=== PATIENT | male | born 1940 | race Caucasian/White ===

== ENCOUNTER 2016-07-24 08:39 | Day surgery (SDC) | payer MEDICAID, MEDICARE ==
[~2016-07-24] VITALS: Ht 175.3 cm; Wt 72.5 kg
--- NOTE | 2016-07-24 07:33 | PCM.HPANE ---
Patient Data Surgeon Admitting Provider: Attending Provider:Jose Damian MD Primary Care Physician:Luis Miguel Palm DO Other Provider: Reason for Visit Dysphagia Ht/WT & BMI Body Mass Index Allergies Coded Allergies: No Known Allergies (Unverified , 07/23/16) Past Anesthesia History Anesthesia History: Denies:: Abnormal Airway, Anesthesia Reactions, Difficult Intubation, Fam Anesthesia Reaction, Fam Malignant Hypertherm, Malignant Hyperthermia Diabetes History Hx Diabetes?: No MRSA MRSA: No Medications Blood Thinner: Aspirin Reported Medications Zolpidem 10 Mg Kkloec23 Mg PO HS PRN For Insomnia Ref 0 07/23/16 Trazodone 50 Mg [id number] Mg PO HS Ref 0 07/23/16 Baclofen 10 Mg Siuxif14 Mg PO BID Ref 0 01/23/16 Esomeprazole Magnesium (Nexium)20 Mg Capsule.dr20 Mg PO DAILY Ref 0 01/23/16 Atorvastatin (Lipitor)40 Mg Rfpvzz79 Mg PO DAILY Ref 0 01/23/16 Clonazepam 0.5 Mg Tablet0.5 Mg PO BID PRN For Anxiety Ref 0 01/23/16 Lisinopril 20 Mg Iuaojr37 Mg PO DAILY Ref 0 01/23/16 Carvedilol 12.5 Mg Eaknpw55.5 Mg PO BID Ref 0 01/23/16 Aspirin 325 Mg Aoufve552 Mg PO DAILY 01/23/16 History HEENT History: Positive for:: Dysphagia (MILD INCREASE SINCE LAST DILATION "USUALLY EVERY YEAR") Denies:: Abnormal Airway Difficult Intubation Cardiovascular History: Positive for:: Congestive Heart Failure Hypertension Pacemaker Hx of Respiratory Problem?: No Respiratory History: Denies:: Tuberculosis Neurological History: Positive for:: CVA (MINI-STROKE 2 YEARS AGO...NO RESIDUAL EFFECTS) Psycho Social History: Positive for:: Anxiety Hx Surgeries?: Yes (ESOPH CA, STENTS X6, PACEMAKER, CHOLY, T&A, CATARACTS) Other History: Positive for:: Cancer (ESOPHAGEAL) Hx Diabetes: No Hx Alcohol Use: NoHx Substance Use: No Smoking Status: Never Smoker Stop/Bang MUNIR Risk Assessment: Low Risk, <3 Yes Risk Assessment Category Category 1A: Patient has history of documented sleep apnea, and HAS NOT received any narcotic, sedative or anesthesia administration during this stay. Category 1B: Patient has history of documented sleep apnea, and HAS received any narcotic , sedative or anesthesia administration during this stay Category 2: Patient has SUSPECTED Obstructive Sleep Apnea, and HAS received any narcotic , sedative or anesthesia administration during this stay. Category 3: Patient has SUSPECTED Obstructive Sleep Apnea and HAS NOT received narcotic, sedative or anesthesia administration during this stay. Category 4: Outpatient in Procedural Areas with known sleep apnea or who screen positive for High Risk via the STOP/BANG questionnaire. Exam Exam General Appearance: Alert, Oriented X3, Cooperative, No Acute Distress HEENT/AIRWAY: MP 2 Lungs: Clear to Auscultation, Normal Air Movement Heart: Exam Unremarkable, Regular Rate/Rhythm, No Murmurs/Rubs/Gallops Plan Impression Patient chart reviewed, patient interviewed and anesthestic plan with risks, benefits, and alternatives discussed, and informed consent obtained. ASA Physical Status: ASA3 Severe Disease Anesthetic Plan: MAC Bene/Risks/Altern/Consents: Yes HP Complete Prior to Induction: Yes Vitaliy Riley MD Jul 24, 2016 07:33
[~2016-07-24 08:39] MED LIST: ASPI325T32 PO; BACL10TA PO; CARV12.52 PO; ESOM20CA28 PO; KLO5T PO; LIP40 PO; LISI-567 PO; Lactated Ringer's 1,000 ML IV ONE; TRAZ-115 PO; ZOLP10TA5 PO
[2016-07-24] MEDS ORDERED: fentaNYL-PF 50 mCg/mL 2 mL Inj ONE (08:40)
[2016-07-24] MEDS ORDERED: Propofol 10,000 mCg/mL 20 mL Inj ONE (08:40)
[2016-07-24 09:03] VITALS: BP 121/72; PULSE 81; RESP 16; O2SAT 99
[2016-07-24] MEDS ORDERED: Lactated Ringer's 1,000 ML IV SCH (09:56)
--- NOTE | 2016-07-24 09:56 | PCM.ANEP2 ---
Post Anesthesia Evaluation ASA/CMS Post Anesthesia VS in Patient's Normal Range?: Yes Resp Stable; Airway Patent?: Yes CV Function & Hydration Stable: Yes Mental Status Recovered?: Yes Pain control Satisfactory?: Yes N/V Control Satisfactory?: Yes Vitaliy Riley MD Jul 24, 2016 09:56
--- NOTE | 2016-07-24 09:56 | PCM.ANEP1 ---
Post Anesthesia Phase 1 PACU Phase 1 Assessment Vital Signs Vital Signs Date Time Temp Pulse Resp B/P Pulse Ox O2 Delivery O2 Flow Rate FiO2 07/24/16 09:03 36.6 81 16 121/72 99 Room Air Anesthetic Administered: MAC Level of Alertness: Awake, talking CASILLAS's with Equal Strength: Yes Pain: No Nausea or Vomiting: No Oxygen Delivery: Nasal Cannula Lungs: Clear to Auscultation, Normal Air Movement Vitaliy Riley MD Jul 24, 2016 09:56
[2016-07-24 09:59] VITALS: BP 115/63; PULSE 62; RESP 14; O2SAT 97
[2016-07-24] MEDS ORDERED: Ondansetron 2 mg/mL 2 mL Inj IVPUSH PRN (10:00)
[2016-07-24] MEDS ORDERED: MetoCLOpramide 5 mg/mL 2 mL Inj IVPUSH PRN (10:00)
[2016-07-24 10:21] VITALS: BP 98/61; PULSE 68; RESP 14; O2SAT 99
--- NOTE | 2016-07-24 10:37 | ENDO ---
[address] [address] ENDOSCOPY PROCEDURE PATIENT: QUENTIN ESPOSITO : 1940 MR#: [id number] ADMIT: 07/24/2016 JOB ID: [id number] DATE OF SERVICE: 07/24/2016 TYPE OF OPERATION: Esophagogastroduodenoscopy with esophageal dilatation. PREOPERATIVE DIAGNOSIS(ES): Dysphagia. POSTOPERATIVE DIAGNOSIS(ES): 1. Status post distal esophagectomy with anastomosis, status post ylv-msexupc-ogs-scope balloon dilatation from 18-20 mm with good mucosal tear. 2. Medium-sized hiatal hernia. ANESTHESIA: Monitored anesthesia care. COMPLICATIONS: None. BLOOD LOSS: Minimal. DESCRIPTION OF PROCEDURE: After risks and benefits explained to the patient, informed consent was obtained. After anesthesia administered, upper endoscope was then inserted into the mouth, intubating the esophagus, stomach, second portion of duodenum. Mucosa carefully examined. After procedure was done, the scope withdrawn and the procedure terminated. FINDINGS: Upon inspection of the esophagus, there was evidence of prior history esophageal surgery that was seen with anastomosis. Z-line located at 38 cm from incisors. Upon entering the stomach, the stomach appeared to have mild nonerosive gastritis. Retroflexion showed a hiatal hernia. Duodenal bulb, first portion normal. Afterwards a pre-TTS balloon dilatation performed at 18-20 mm in serial fashion with good mucosal tear of the distal esophagus. IMPRESSIONS: 1. Medium-sized hiatal hernia. 2. Status post distal esophagectomy with anastomosis, status post eym-jsffxkb-ehd-scope balloon dilatation from 18-20 mm with good mucosa tear. RECOMMENDATIONS: Continue anti-reflux medication 40 mg of Nexium by mouth twice a day. Follow up in GI clinic as needed.
== END 2016-07-24 23:59 | disposition home or self-care (01) ==
LOC: END 08:39
PROVIDERS: ATTEND Internal Medicine Gastroenterology
DX: R13.10 Dysphagia, unspecified (principal); K29.70 Gastritis, unspecified, without bleeding; K44.9 Diaphragmatic hernia without obstruction or gangrene; Z85.01 Personal history of malignant neoplasm of esophagus; I10 Essential (primary) hypertension; I25.10 Atherosclerotic heart disease of native coronary artery without angina pectoris; Z95.5 Presence of coronary angioplasty implant and graft; Z95.0 Presence of cardiac pacemaker
CPT/HCPCS: 43249; J2250; J3010; J7120

== ENCOUNTER 2016-09-13 08:07 | Emergency (ER) | payer MEDICARE ==
[~2016-09-13] VITALS: Ht 175.3 cm; Wt 72.7 kg
[~2016-09-13 08:07] MED LIST changes: -Lactated Ringer's 1,000 ML IV ONE; -TRAZ-115 PO; -ZOLP10TA5 PO
[2016-09-13 08:10] VITALS: BP 147/96; PULSE 76; RESP 16; O2SAT 98
--- NOTE | 2016-09-13 08:37 | ED.REPORT ---
HPI-Neurologic Deficit Date of Service Sep 13, 2016 ED Provider: Modesta Pacheco MD The patient is a 76 year old male with history of esophageal cancer, chronic renal insufficiency, stroke, coronary artery disease s/p stenting and pacemaker , hypertension, and Johnson's esophagus, who presents to the emergency department with multiple complaints. He states over the last 2 months he has had 4 episodes when his "head feeling funny" and he has balance issues. After these symptoms resolve he develops polydipsia and diaphoresis. During the episodes he states, "I am doing something wrong and am aware of this but am unable to stop and I keep repeating it." He gives an example of when he had to microwave something for 1 minute but then resets the time 5 more times even though he knows he only needed to do it once. His last episode was 1 week ago and he noticed facial tingling as well. He denies head pain, numbness, weakness , visual changes, dizziness or lightheadedness. He came in today because he is worried another episode is going to occur when he is driving or away from home. He also mentions trouble urinating and states, "it just sprays everywhere." He has groin pain with urination and movement. This has been ongoing for over 1 year. He has been evaluated numerous times for this. He was last seen by a urologist 4-5 months ago. He denies groin swelling, testicular pain or swelling. Nursing Notes Stated Complaint: HEAD HURTS,FACE NUMB,SOMETIMES CONFUSED Chief Complaint: Neuro Symptoms/ Deficits Nursing Notes Reviewed: Yes Allergies: Coded Allergies: No Known Allergies (Unverified , 09/13/16) Scheduled Aspirin (Aspirin) 325 Mg Tablet 325 MG PO DAILY Atorvastatin (Lipitor) 40 Mg Tablet 40 MG PO DAILY Baclofen (Baclofen) 10 Mg Tablet 10 MG PO BID Calcium Carbonate/Vitamin D3 (Calcium 500 mg Chewable Tablet) 1 Each Tab.chew 1 EACH PO BID Carvedilol (Carvedilol) 12.5 Mg Tablet 12.5 MG PO BID Esomeprazole Magnesium (Nexium) 20 Mg Capsule.dr 20 MG PO DAILY Lisinopril (Lisinopril) 20 Mg Tablet 20 MG PO DAILY Potassium Chloride (Potassium Chloride) 10 Meq Tab.er.prt 10 MEQ PO BID TAKE WITH FOOD Scheduled PRN Clonazepam (Clonazepam) 0.5 Mg Tablet 0.5 MG PO BID PRN PRN For Anxiety General Time Seen by Provider: 08:41 Chief Complaint Other (multiple medical complaints) Hx Obtained From: Patient Arrived By: Walk-in Sudden in Onset?: No Onset Occurred: More than a week ago... Symptom Duration: Intermittent Progression Since Onset: Intermittent, Gradually worsening Severity: Current: No pain currently Severity: Maximum: No pain Pertinent Negative: Pt denies other symptoms Recent Healthcare: No recent hospitalization, Recent doctor visit Similar Sx Previous: Yes Past Medical History Past Medical History Hx esophageal cancer Chronic renal insufficiency in 2013 Stroke Johnson's esophagus Reports: Coronary artery disease, Hypertension Past Surgical History Cardiac stenting Reports: Cholecystectomy Reports: Pacemaker insertion Family History Noncontributory Smoking History Never Smoker Social History Alcohol Use: Denies alcohol use Drug Use: Denies drug use Other Social History: Local resident Ambulatory Status Independent Review of Systems Review of Systems Note: +"head feels funny," trouble urinating, groin pain with urinating, facial tingling Skin: Reports Diaphoresis Neurologic: Reports: Confusion, Problem walking (balance issues), Denies: Dizziness, Headache, Lightheaded, Numbness, Vision change, Weakness Complete sys rev & neg: except as marked. Endocrine: Reports: Polydipsia Physical Exam Initial Vital Signs Vital Signs (First) Date Time Temp Pulse Resp B/P Pulse Ox O2 Delivery O2 Flow Rate FiO2 09/13/16 08:10 36.5 76 16 147/96 98 Room Air Initial VS: Reviewed, Vital signs abnormal ENT: Mucous membranes moist, Conjunctiva normal, No scleral icterus Neck: Supple, Non-tender, Full range of motion Lymphatic: No lymphadenopathy Extremities: Vascular intact, Neuro intact, No swelling, No tenderness Skin: Warm, Dry, No cyanosis Psychiatric: Mood/affect normal, Behavior normal, Normal thought content General/Constitutional: Awake, Alert Head / Eyes: Atraumatic, Normocephalic, PERRL, EOMI, No nystagmus Respiratory / Chest: Atraumatic, Breath sounds NL, Breath sounds = bilat, No respiratory distress, No rales, No rhonchi, No wheezing Cardiovascular: Heart rate NL, Regular rhythm, Heart sounds NL, No gallop, No murmurs, Peripheral circulation NL Neurologic: Oriented X3, Speech NL, No motor deficits, No sensory deficits, CN II - XII intact, Cerebellar NL, Memory NL Abdomen: Soft, No guarding, No rebound, BS normoactive, No distention, No hernia, No palpable mass, No pulsatile mass Right groin pain without swelling or masses. Interpretation & Diagnostics PROCEDURE: CT ANGIO BRAIN NECK TPA IMPRESSION: 1. No acute intracranial hemorrhage or diffuse cerebral edema. 2. Mild chronic small vessel ischemic changes and mild parenchymal volume loss. 3. Atherosclerosis of the bilateral carotid arteries without occlusion or high- grade stenosis. No dissection or aneurysm. 4. The intracranial arteries are patent. No large occluded vessels, aneurysms , or dissections are evident. Note: Findings were discussed with Dr. Pacheco at 1139 hours (EST) at 09/13/16. Dictated by: Jono Gilbert M.D. on 09/13/2016 at 10:33 Lab Results Interpretation Result Diagram: 09/13/16 1010 Test 09/13/16 10:10 Sodium Level 143mEq/L (134-144) Potassium Level 3.0mEq/L (3.5-5.2) Chloride Level 112mEq/L (97-108) Carbon Dioxide Level 20mmol/L (18-29) Blood Urea Nitrogen 11mg/dL (8-27) Creatinine 0.69mg/dL (0.76-1.27) Estimat Glomerular Filtration Rate 119mL/min (>59) Glucose Level 94mg/dL (60-99) Calcium Level 6.5mg/dL (8.5-10.1) Re-Eval/Medical Decision Med Decision/Clinical Course The patient has had some intermittent confusion and has had a TIA in the past. I was going to order an MRI however the patient has a pacemaker. He CT angina which was negative. His evaluation revealed significant hypocalcemia which could cause some confusion. The patient is not currently confused, he is given an IV infusion of calcium. I contacted his primary care doctor's office and they will follow-up with the patient. It does not look like this was a TIA, the patient has had an evaluation for TIA in the past. As far as the patient's other concern about his groin pain, there are no masses or lesions. I explained to him that he needs to continue to follow-up with specialist. Source of Hx: Old records Re-Evaluation/Progress #1: Time of Eval: 09:20 Re-Evaluation/Progress Note: Discussed plan for CTA. Re-Evaluation/Progress #2: Time of Eval: 12:12 Re-Evaluation/Progress Note: Rechecked the patient. Discussed results, diagnosis, and plan for discharge. All questions were addressed. Consultation : Referral / Consult Name: Jose Jimenez DO Consulted With: Primary care physician Call Returned at: 10:43 Exploration Geologist: Will see in office, Agrees with eval, Agrees with plan Note: Spoke with the on-call physician for Dr. Palm. Counseled Regarding: Diagnosis, Lab results, Need for follow-up, When/why to return to ED Discharge & Departure Impression: Primary Impression: Hypocalcemia Additional Impression: Hypokalemia Disposition: Home Discharge Condition All VS Reviewed: Yes Condition: Stable Additional Instructions: Thank you for entrusting us with your care today. Your labs today showed evidence of low calcium and low potassium levels. You should start taking a calcium and potassium supplement. Please call Dr. Palm's office today to schedule a close followup appointment to further discuss these results. You will need to have your calcium rechecked. Seek care for any new or concerning symptoms. Referrals: Luis Miguel Palm DO (PCP) [facility] Attestation Portions of this note were transcribed by Vicki Quiñones. I, Dr. Pacheco personally performed the history, physical exam and medical decision-making; I reviewed and confirmed the accuracy of the information in the transcribed note. Signed by: Madisyn Stewart, 09/13/2016 at 1220. copies to: Luis Miguel Palm Jena M MD Sep 13, 2016 08:37 Vicki Quiñones Sep 13, 2016 08:44
[2016-09-13] MEDS ORDERED: Potassium Chloride 20 mEq SR Tablet PO ONE (10:55)
[2016-09-13] MEDS ORDERED: Calcium GLUCOnate 10% (Gm) 1 Gm/10 mL Inj IVPUSH ONE (10:55)
[2016-09-13] MEDS ORDERED: Calcium GLUCO 10% (Gm) Inj 2 GM in 0.9% Sodium Chloride 50 ML IV ONE (11:15)
--- NOTE | 2016-09-13 11:46 | DRSVH ---
PROCEDURE: CT ANGIO BRAIN NECK TPA INDICATIONS: STAT READ - CALL ED PROVIDER W/RESULTS TECHNIQUE: Pre-contrast 4.5 mm thick sections acquired from the foramen magnum to the vertex. After the adminis tration of intravenous contrast, 1 mm thick sections acquired from the aortic arch through the [place] of [place]. Post-contrast 4.5 mm thick sections then re-acquired from the foramen magnum to the vert ex. 3-dimensional weixihv-uqirtkmdd-xjelnaxxci (MIP) and/or volume rendering reformats were acquired of the central intracranial vasculature and neck separately. For radiation dose reduction, the foll owing was used: automated exposure control, adjustment of mA and/or kV according to patient size. COMPARISON: [facility], CT, CT BRAIN WO CON, 02/28/2016, 9:35. FINDINGS: Image quality: Excellent. BRAIN: Brain: There is no acute intra-axial or extra-axial hemorrhage. No extra-axial fluid collection is i dentified. There is no midline shift or mass effect. The orbits are grossly unremarkable. No large areas of diffusely decreased attenuation are evident within the brain to suggest diffuse cer ebral edema. Small areas of the deep white matter low attenuation are evident, best appreciated with in the bilateral frontal lobes, similar to the prior study. There is no abnormal enhancement within the brain. The ventricles and cortical sulci are mildly prominent. Bones: Calvarium and visualized facial bones are grossly intact. Mixed retention cyst is present wi thin the left maxillary sinus. HEAD CT ANGIOGRAPHY: Anterior circulation: Intracranial internal carotid arteries are normal in size and flow. Mild athe rosclerosis is noted involving the intracranial portions of the internal carotid arteries.The flow wi thin the paired anterior cerebral arteries is normal and symmetric. The flow within the middle cereb ral arteries is normal and symmetric. The anterior communicating artery is seen. No aneurysms are s een. Posterior circulation: Visualized portions of the vertebral arteries demonstrate normal caliber, and join to form a normal appearing basilar artery. Flow within the posterior cerebral arteries is norm al and symmetric. No aneurysms are seen. NECK CT ANGIOGRAPHY: Carotid system: The great vessels demonstrate a conventional anatomy as they arise from the aortic a rch. The origins of the common carotid arteries appear patent. The common carotid arteries demonstr ate normal caliber and courses. The bifurcation regions are both widely patent. The internal caroti d arteries demonstrate normal calibers and courses. Mild atherosclerotic irregularity is noted invol ving the bilateral carotid bulbs (right greater than left) with narrowing estimated at approximately 30-40%. Posterior circulation: The origins of the vertebral arteries both appear widely patent. The more harris perior extracranial portions of both vertebral arteries also demonstrate normal courses and calibers. They join to form a normal appearing basilar artery. Soft tissues: Visualized neck soft tissues demonstrate no suspicious abnormalities. Image portions of the upper thorax demonstrate postoperative changes of the esophagus, not well evaluated more compl etely included on this examination, suggesting previous gastric pull-through procedure. Bones: No suspicious bony lesions. Visualized cervical spine appears normally aligned. Advanced de generative changes of the cervical spine are present. IMPRESSION: 1. No acute intracranial hemorrhage or diffuse cerebral edema. 2. Mild chronic small vessel ischemic changes and mild parenchymal volume loss. 3. Atherosclerosis of the bilateral carotid arteries without occlusion or high-grade stenosis. No d issection or aneurysm. 4. The intracranial arteries are patent. No large occluded vessels, aneurysms, or dissections are e vident. Note: Findings were discussed with Dr. Pacheco at 1139 hours (EST) at 09/13/16. Dictated by: Jono Gilbert M.D. on 09/13/2016 at 10:33 Approved by: Jono Gilbert M.D. on 09/13/2016 at 10:45
[2016-09-13] MEDS ORDERED: CALC-952 PO (12:15)
[2016-09-13] MEDS ORDERED: POTA10TA38 PO (12:16)
[2016-09-13 12:48] VITALS: BP 151/87; PULSE 60; RESP 16; O2SAT 99
== END 2016-09-13 12:58 | disposition home or self-care (01) ==
LOC: SED 08:07
DX: E83.51 Hypocalcemia (principal); E87.6 Hypokalemia; I12.9 Hypertensive chronic kidney disease with stage 1 through stage 4 chronic kidney disease, or unspecified chronic kidney disease; I25.10 Atherosclerotic heart disease of native coronary artery without angina pectoris; Z85.01 Personal history of malignant neoplasm of esophagus; Z87.19 Personal history of other diseases of the digestive system; Z86.73 Personal history of transient ischemic attack (TIA), and cerebral infarction without residual deficits; Z95.0 Presence of cardiac pacemaker; Z95.5 Presence of coronary angioplasty implant and graft; Z79.82 Long term (current) use of aspirin; Z87.891 Personal history of nicotine dependence
CPT/HCPCS: 36415; 70496; 70498; 80048; 96374; 99285; J0610; Q9967